=== PATIENT | female | born 1950 | race Caucasian/White ===

== ENCOUNTER 2017-07-12 23:00 | Emergency (ER) | payer MEDICARE ==
[~2017-07-12] VITALS: Ht 149.9 cm; Wt 109.8 kg
[~2017-07-12 23:00] MED LIST: ALPR0.5T6 PO; CIPR250T28 PO; CLON0.3T PO; DEXL60CA2 PO; DILT120C2 PO; GLIP5TAB PO; LEVO50TA PO; LEVO5TAB2 PO; NEBI5TAB2 PO; PREG50CA PO; RISP0.2518 PO; RIVA10TA PO; TRAZ50TA18 PO; VENL75CA PO
[2017-07-12 23:05] VITALS: BP 127/77
--- NOTE | 2017-07-12 23:29 | ER.PDOC ---
General Chief Complaint: Skin Rash/Abscess Stated Complaint: ABSCESS ON HEAD Time seen by MD: 23:28 Source: patient Exam Limitations: no limitations History of Present Illness Initial Comments Abscess behind head for 4-5 days. No fever or chills. Severity: moderate Quality: painful Allergies: Coded Allergies: Penicillins (Unverified Allergy, Unknown, Rash, 09/13/15) Sulfa (Sulfonamide Antibiotics) (Unverified Allergy, Unknown, 09/13/15) amlodipine (Unverified Allergy, Unknown, 09/13/15) atenolol (Unverified Allergy, Unknown, 09/13/15) atorvastatin (Unverified Allergy, Unknown, 09/13/15) benazepril (Unverified Allergy, Unknown, 09/13/15) butorphanol (Unverified Allergy, Unknown, 09/13/15) candesartan (Verified Allergy, Unknown, 09/13/15) ceftriaxone (Verified Allergy, Unknown, 09/13/15) celecoxib (Unverified Allergy, Unknown, 09/13/15) conivaptan (Unverified Allergy, Unknown, 09/13/15) diclofenac (Verified Allergy, Unknown, 09/13/15) doxycycline (Unverified Allergy, Unknown, 09/13/15) duloxetine (Unverified Allergy, Unknown, 09/13/15) erythromycin base (Verified Allergy, Unknown, 09/13/15) esomeprazole (Unverified Allergy, Unknown, 09/13/15) fentanyl (Verified Allergy, Unknown, 09/13/15) fexofenadine (Verified Allergy, Unknown, 09/13/15) fluoxetine (Unverified Allergy, Unknown, 09/13/15) hydrocodone (Verified Allergy, Unknown, 09/13/15) ipratropium (Verified Allergy, Unknown, 09/13/15) lansoprazole (Unverified Allergy, Unknown, 09/13/15) meloxicam (Unverified Allergy, Unknown, 09/13/15) methocarbamol (Unverified Allergy, Unknown, 09/13/15) metronidazole (Unverified Allergy, Unknown, 09/13/15) naproxen (Unverified Allergy, Unknown, 09/13/15) nitrofurantoin (Unverified Allergy, Unknown, 09/13/15) nitroglycerin (Unverified Allergy, Unknown, 09/13/15) olanzapine (Unverified Allergy, Unknown, 09/13/15) olmesartan (Verified Allergy, Unknown, 09/13/15) pantoprazole (Unverified Allergy, Unknown, 09/13/15) psyllium (Unverified Allergy, Unknown, 09/13/15) senna (Unverified Allergy, Unknown, 09/13/15) sertraline (Unverified Allergy, Unknown, 09/13/15) simvastatin (Unverified Allergy, Unknown, 09/13/15) tizanidine (Unverified Allergy, Unknown, 09/13/15) tramadol (Unverified Allergy, Unknown, 09/13/15) trandolapril (Unverified Allergy, Unknown, 09/13/15) verapamil (Unverified Allergy, Unknown, 09/13/15) pineapple (Verified Adverse Reaction, Unknown, throws up, 09/20/15) pt states she throws up walnut (Verified Adverse Reaction, Unknown, throws up, 09/20/15) per pt she throws up Uncoded Allergies: cardizem cd (Allergy, Unknown, 09/13/15) Home Meds Active Scripts Venlafaxine Hcl (EFFEXOR XR) 75 Mg Cap.er.24h, 75 MG PO DAILY, #30 Prov:BRUNO BURT MD 09/23/15 Trazodone Hcl (TRAZODONE HCL) 50 Mg Tablet, 50 MG PO HS, #30 TABLET Prov:BRUNO BURT MD 09/23/15 Risperidone (RISPERDAL) 0.25 Mg Tablet, 0.25 MG PO BID, #60 TABLET Prov:BRUNO BURT MD 09/23/15 Alprazolam (ALPRAZOLAM) 0.5 Mg Tablet, 0.5 MG PO BID, #60 TABLET Prov:BRUNO BURT MD 09/23/15 Levothyroxine Sodium (SYNTHROID) 50 Mcg Tablet, 50 MCG PO ACB for 30 Days, TABLET Prov:NEGAR MARK III DO 09/21/15 Glipizide (GLUCOTROL XL) 5 Mg Tab.er.24, 10 MG PO DAILY Y for HYPERGLYCEMIA for 30 Days, 0 Refills Prov:NEGAR MARK III DO 09/21/15 Pregabalin (LYRICA) 50 Mg Capsule, 100 MG PO BID for 30 Days, CAPSULE 0 Refills Prov:NEGAR MARK III DO 09/21/15 Nebivolol Hcl (BYSTOLIC) 5 Mg Tablet, 10 MG PO BID for 30 Days, TABLET 0 Refills Prov:NEGAR MARK III DO 09/21/15 Diltiazem Hcl (CARDIZEM CD) 120 Mg Cap.er.24h, 120 MG PO DAILY for 30 Days, 0 Refills Prov:NEGAR MARK III DO 09/21/15 Clonidine Hcl (CLONIDINE HCL) 0.3 Mg Tablet, 0.3 MG PO Q8HR for 30 Days, TABLET 0 Refills Prov:NEGAR MARK III DO 09/21/15 Ciprofloxacin Hcl (CIPRO) 250 Mg Tablet, 250 MG PO BID for 5 Days, TABLET 0 Refills Prov:NEGAR MARK III DO 09/21/15 Rivaroxaban (XARELTO) 10 Mg Tablet, 10 MG PO HS, #30 TABLET 0 Refills Prov:NEGAR MARK III DO 09/21/15 Reported Medications Levocetirizine Dihydrochloride (LEVOCETIRIZINE DIHYDROCHLORIDE) 5 Mg Tablet, 5 MG PO DAILY, TABLET 09/12/15 Dexlansoprazole (DEXILANT) 60 Mg , 60 MG PO DAILY 09/12/15 Past Medical History Medical History: asthma, CVA/TIA/stroke, diabetes, fibromyalgia, hypertension, thyroid disease, other Surgical History: cholecystectomy, knee LMP (females 10-50): postmenopause Social History Smoking: non-smoker Alcohol Use: none Drug Use: none Constitutional: no symptoms reported Respiratory: no symptoms reported Cardiovascular: no symptoms reported Gastrointestinal: no symptoms reported Genitourinary: no symptoms reported Skin: see HPI All Other Systems: Reviewed and Negative Physical Exam General Appearance: alert, no distress Skin: abscess Location: other (posterior scalp) With: tenderness, swelling Extremities: non-tender, nml ROM, no edema EENT: eyes nml inspection, lips/gums nml, pharynx nml Neck: trachea midline, no swelling Respiratory: no resp. distress, breath sounds nml CVS: reg. rate & rhythm, heart sounds nml Abdomen: non-tender, no organomegaly NEURO/PSYCH: oriented x 3, CN's nml as tested, motor nml, sensation nml, mood/ affect nml Incision and Drainage Incision and Drainage : Site: Posterior scalp Blade Size: 11 I & D Procedure: betadine prep, gauze wick placed, probe/break up loculation , irrigated cavity w/saline, culture/gram stain Departure Time of Disposition: 00:19 Disposition: 01 HOME, SELF-CARE Impression: Primary Impression: Abscess Condition: Stable Referrals: EL ROJAS MD (PCP) PRIMARY CARE PROVIDER Additional Instructions: Clindamycin Return to ED later today for dressing change Duration or Time Spent with Pa: 60 mins HYUN MARINO MD Jul 12, 2017 23:29
[2017-07-12] MEDS ORDERED: LIDOCAINE 1% VIAL ONE (23:35)
--- NOTE | 2017-07-13 00:04 | NUR ---
ABSCESS DR MARINO & NURSE AT BEDSIDE FOR I & D PROCEDURE. PT TOLERATED PROCEDURE WELL. WOUND CULTURE COLLECTED. SITE DRESSED AND WRAPPED. PT STATES NO COMPLAINTS AT THIS TIME.
[2017-07-13] MEDS ORDERED: TYLENOL PO STA (00:18)
[2017-07-13] MEDS ORDERED: CLEOCIN PO STA (00:18)
[2017-07-13] MEDS ORDERED: TYLENOL PO ONE ×2 (00:19→00:25)
[2017-07-13] MEDS ORDERED: CLEOCIN ONE (00:19)
[2017-07-13 00:57] VITALS: BP 127/77
== END 2017-07-13 00:52 | disposition home or self-care (01) ==
LOC: ER 23:00 → EDBD 23:00 → ER 07-13 00:52
DX: L02.811 Cutaneous abscess of head [any part, except face] (principal); E07.9 Disorder of thyroid, unspecified; E11.9 Type 2 diabetes mellitus without complications; I10 Essential (primary) hypertension; J45.909 Unspecified asthma, uncomplicated; M79.7 Fibromyalgia; Z86.73 Personal history of transient ischemic attack (TIA), and cerebral infarction without residual deficits; Z88.0 Allergy status to penicillin; Z88.1 Allergy status to other antibiotic agents; Z88.2 Allergy status to sulfonamides; Z88.8 Allergy status to other drugs, medicaments and biological substances; Z90.49 Acquired absence of other specified parts of digestive tract; Z79.899 Other long term (current) drug therapy
CPT/HCPCS: 10060; 87070; 87077; 87186; 99284; J2001